=== PATIENT | male | born 1940 | race Caucasian/White ===

== ENCOUNTER → 2016-11-01 | Outpatient (CLI) | payer OTHER | END | disposition home or self-care (01) | LOC: C.LABPBG 12:30 | PROVIDERS: ATTEND Urology | DX: R35.1 Nocturia (principal); I63.9 Cerebral infarction, unspecified; R39.15 Urgency of urination ==

== ENCOUNTER → 2017-03-15 | Outpatient (CLI) | payer OTHER | END | disposition home or self-care (01) | LOC: C.LABSPEC 14:23 | PROVIDERS: ATTEND Urology | DX: R39.15 Urgency of urination (principal); R30.0 Dysuria ==